=== PATIENT | female | born 1945 | race Caucasian/White ===

== ENCOUNTER → 2022-03-16 11:19 | Outpatient (BNVA) | payer MEDICARE, SELFPAY | PROVIDERS: Family Provider Nurse Practitioner Family; PCP Registered Nurse; Visit Provider Nurse Practitioner Family | DX: R30.0 Dysuria (principal) | CPT/HCPCS: 81000 ==

== ENCOUNTER → 2022-12-25 10:40 | Outpatient (BNVA) | payer MEDICARE, SELFPAY | PROVIDERS: Family Provider Nurse Practitioner Family; PCP Registered Nurse; Referring Provider Registered Nurse; Visit Provider Obstetrics & Gynecology | DX: R39.15 Urgency of urination (principal) | CPT/HCPCS: 81000 ==

== ENCOUNTER → 2023-02-01 11:10 | Outpatient (BNVA) | payer MEDICARE, SELFPAY | PROVIDERS: Family Provider Nurse Practitioner Family; PCP Registered Nurse; Visit Provider Obstetrics & Gynecology | DX: N39.41 Urge incontinence (principal); R39.9 Unspecified symptoms and signs involving the genitourinary system | CPT/HCPCS: 87086 ==

== ENCOUNTER → 2024-07-08 09:35 | Outpatient (BNVA) | payer MEDICARE, SELFPAY | PROVIDERS: Family Provider Nurse Practitioner Family; PCP Registered Nurse; Visit Provider Podiatrist Foot & Ankle Surgery | DX: M77.52 Other enthesopathy of left foot and ankle (principal); M79.672 Pain in left foot | CPT/HCPCS: 73630; 99203 ==

== ENCOUNTER → 2024-07-24 08:32 | Outpatient (BNVA) | payer MEDICARE, SELFPAY | PROVIDERS: Family Provider Nurse Practitioner Family; PCP Registered Nurse; Visit Provider Nurse Practitioner Family | DX: R39.9 Unspecified symptoms and signs involving the genitourinary system (principal) | CPT/HCPCS: 81000 ==

== ENCOUNTER → 2024-11-25 14:56 | Outpatient (BNVA) | payer MEDICARE, SELFPAY | PROVIDERS: Family Provider Nurse Practitioner Family; PCP Registered Nurse; Visit Provider Orthopaedic Surgery | DX: M25.512 Pain in left shoulder (principal); G89.29 Other chronic pain | CPT/HCPCS: 99204 ==

== ENCOUNTER 2024-12-12 14:52 | Outpatient (CLI) | payer MEDICARE, SELFPAY ==
--- NOTE | 2024-12-12 15:15 | MRR_ITS ---
PROCEDURE INFORMATION: Exam: MR Left Upper Extremity Joint Without Contrast; Shoulder Exam date and time: 12/12/2024 3:34 PM Age: 79 years old Clinical indication: Pain; Shoulder; Left; Additional info: Left shoulder pain. Frozen shoulder per PT. Pain progressively worse over past year. Cannot raise arm. TECHNIQUE: Imaging protocol: Magnetic resonance imaging of the left upper extremity without contrast. Exam focused on the shoulder. COMPARISON: CR XR shoulder LT min 2V* [id number] 06/19/2024 5:05 PM FINDINGS: Bones/joints: Severe glenohumeral osteoarthritis with high-grade chondromalacia, marginal osteophytes and subchondral marrow edema/cystic change. There is posterior decentering of the humeral head. No evidence of fracture or aggressive osseous lesion. Small joint effusion. There is a 7 mm intra-articular body in the subscapularis recess (image 18 of series 5). Moderate osteoarthritis without evidence of fracture or subluxation. Glenoid labrum: Circumferential degenerative labral tear. If further detail is clinically warranted, consider correlation with MR arthrography. Supraspinatus tendon: Intact. Mild tendinosis and fraying. Infraspinatus tendon: Intact. Mild tendinosis and fraying. Subscapularis tendon: Intact. Teres minor tendon: Intact. Tendon of biceps brachii: Intact. There is a septated cyst with in the within the biceps tendon sheath measuring approximately 24 x 10 mm. Glenohumeral ligaments: Grossly intact. Soft tissues: No fluid collection or hematoma. MR/MR shoulder LT wo con* [id number] IMPRESSION: 1. Severe glenohumeral osteoarthritis with circumferential degenerative labral tear and intra-articular body. 2. Cuff is intact without high-grade or full-thickness tear. 3. Complex septated ganglion cyst within the biceps tendon sheath.
== END 2024-12-12 14:53 | disposition home or self-care (01) ==
PROVIDERS: Family Provider Nurse Practitioner Family; PCP Registered Nurse; Visit Provider Orthopaedic Surgery
DX: M19.012 Primary osteoarthritis, left shoulder (principal); S43.492A Other sprain of left shoulder joint, initial encounter; X58.XXXA Exposure to other specified factors, initial encounter; M67.412 Ganglion, left shoulder; M94.212 Chondromalacia, left shoulder; M25.412 Effusion, left shoulder; M67.814 Other specified disorders of tendon, left shoulder
CPT/HCPCS: 73221

== ENCOUNTER → 2024-12-16 15:18 | Outpatient (BNVA) | payer MEDICARE, SELFPAY | PROVIDERS: Family Provider Nurse Practitioner Family; PCP Registered Nurse; Visit Provider Orthopaedic Surgery | DX: M51.362 Other intervertebral disc degeneration, lumbar region with discogenic back pain and lower extremity pain (principal); M47.896 Other spondylosis, lumbar region | CPT/HCPCS: 72110; 73523; 99203 ==

== ENCOUNTER → 2024-12-23 13:46 | Outpatient (BNVA) | payer MEDICARE, SELFPAY | PROVIDERS: Family Provider Nurse Practitioner Family; PCP Registered Nurse; Visit Provider Orthopaedic Surgery | DX: Z09 Encounter for follow-up examination after completed treatment for conditions other than malignant neoplasm (principal) | CPT/HCPCS: 99213 ==

== ENCOUNTER 2024-12-31 15:05 | Outpatient (CLI) | payer MEDICARE, SELFPAY ==
--- NOTE | 2024-12-31 15:15 | MRR_ITS ---
PROCEDURE INFORMATION: Exam: MR Lumbar Spine Without Contrast Exam date and time: 12/31/2024 3:49 PM Age: 79 years old Clinical indication: Low back pain; Additional info: Chronic low back pain/ no injury TECHNIQUE: Imaging protocol: Magnetic resonance imaging of the lumbar spine without contrast. COMPARISON: CR XR lumbar spine min 4V [id number] 12/16/2024 3:52 PM FINDINGS: Bones/joints: Five non rib-bearing lumbar type vertebral bodies are assumed. Trace dextrocurvature of the lumbar spine re-identified. Normal lumbar lordosis is present, with unchanged grade 1 anterolisthesis of L4. Vertebral body heights are preserved. There is no evidence of fracture. No spondylolysis is seen. Bone marrow signal is within normal limits. Multilevel disc desiccation is present. Spinal cord: The inferior tip of the conus is at the L2 level. The partially imaged spinal cord has normal morphology and signal intensity. L1-L2: There is circumferential disc bulging in association with ligamentum flavum hypertrophy, resulting in mild central spinal canal stenosis. No significant neural foraminal narrowing. L2-L3: There is circumferential disc bulging with tiny posterior central/left paracentral disc protrusion, in association with mild ligamentum flavum hypertrophy, resulting in [id number] left and mild right neural foraminal narrowing. Mild central spinal canal stenosis is present. L3-L4: There is circumferential disc bulging with left foraminal disc protrusion, in association with [id number] bilateral facet joint arthrosis and ligamentum flavum hypertrophy, resulting in severe left and moderate right neural foraminal narrowing. [id number] central spinal canal stenosis present. L4-L5: There is circumferential disc bulging and uncovering, in association with moderate to severe bilateral facet joint arthrosis and ligamentum flavum hypertrophy, resulting in [id number] bilateral neural foraminal narrowing. Moderate central spinal canal stenosis is present. L5-S1: There is circumferential disc bulging in association with moderate to severe bilateral facet joint arthrosis and ligamentum flavum hypertrophy, resulting in [id number] bilateral neural foraminal narrowing. No significant central spinal canal stenosis. Soft tissues: Unremarkable. MR/MR lumbar spine wo con* [id number] IMPRESSION: Multilevel degenerative changes of the lumbar spine, as described above.
== END 2024-12-31 15:06 | disposition home or self-care (01) ==
LOC: RAD 15:06
PROVIDERS: Family Provider Nurse Practitioner Family; PCP Registered Nurse; Visit Provider Orthopaedic Surgery
DX: M48.061 Spinal stenosis, lumbar region without neurogenic claudication (principal); M51.26 Other intervertebral disc displacement, lumbar region; M51.360 Other intervertebral disc degeneration, lumbar region with discogenic back pain only; M47.26 Other spondylosis with radiculopathy, lumbar region; M47.816 Spondylosis without myelopathy or radiculopathy, lumbar region; M47.896 Other spondylosis, lumbar region
CPT/HCPCS: 72148

== ENCOUNTER → 2025-02-12 14:48 | Outpatient (BNVA) | payer MEDICARE, SELFPAY | PROVIDERS: Family Provider Nurse Practitioner Family; PCP Registered Nurse; Visit Provider Orthopaedic Surgery | DX: M43.16 Spondylolisthesis, lumbar region (principal); M48.061 Spinal stenosis, lumbar region without neurogenic claudication | CPT/HCPCS: 99213 ==